=== PATIENT | female | born 1980 | race Hispanic/Latino ===

== ENCOUNTER 2025-06-04 17:05 | Emergency (ER) | payer OTHER ==
[~2025-06-04] VITALS: Ht 152.4 cm; Wt 66.2 kg
--- NOTE | 2025-06-04 17:44 | ERN ---
General Chief Complaint: Hyperglycemia Stated Complaint: HYPERGLYCEMIA Time Seen by MD: 17:23 Source: patient History of Present Illness Initial Comments 45-year-old female known type 1 diabetic who was incarcerated three days ago. She states that she has not been given her regular scheduled insulin. She is starting to feel like she is going into DKA. She asked to be brought to the emergency room. Blood glucose prior to transfer it was 331. Blood glucose measured here in the hospital is 240. Vital signs show the patient is tachycardic. Allergies: Coded Allergies: ibuprofen (Unverified Allergy, Unknown, 06/04/25) Past Medical History Past Medical History: Diabetes-Type II, High Cholesterol, Hypertension Past Surgical History: Appendectomy, Hysterectomy Constitutional: (-) chills, (-) diaphoresis, (-) fever, (-) malaise, (-) weakness, (-) other documentation EENTM: (-) eye pain, (-) blurred vision, (-) tearing, (-) double vision, (-) ear pain, (-) ear discharge, (-) nose pain, (-) nose congestion, (-) throat pain, (-) Throat swelling, (-) mouth pain, (-) tooth pain, (-) mouth swelling, (-) other documentation Respiratory: (-) cough, (-) orthopnea, (-) short of breath, (-) stridor, (-) wheezing, (-) other documentation Cardiovascular: (-) chest pain, (-) edema, (-) palpitations, (-) syncope, (-) dyspnea on exertion, (-) other documentation Gastrointestinal/Abdominal: (-) nausea, (-) vomiting, (-) diarrhea, (-) abdominal pain, (-) abdominal distention, (-) constipation, (-) rectal bleeding, (-) dark stool/melena, (-) other documentation Genitourinary: (-) vaginal discharge, (-) vaginal bleeding, (-) dysuria, (-) frequency, (-) hematuria, (-) pain, (-) other documentation Neuro: (-) altered mental status, (-) headache, (-) syncope, (-) paralysis, (-) numbness, (-) seizure, (-) pre-existing deficit, (-) tremors, (-) weakness, (-) dizziness, (-) slurred speech, (-) vertigo, (-) other documentation Physical Exam General Appearance: (+) moderate distress Orientation: (+) alert Head/Face Trauma: No Eye: bilateral eye normal inspection, bilateral eye PERRL, bilateral eye EOMI Ear, Nose, Throat: (+) hearing grossly normal, (+) normal ENT inspection, (+) moist mucous membraine Neck: (+) normal inspection, (+) supple, (+) full range of motion Respiratory: (+) chest non-tender, (+) lungs clear, (+) well ventilated Heart: (+) regular, (+) no gallop, (+) murmur, (+) tachycardia Vascular: (+) no edema, (+) normal peripheral pulse Gastrointestinal: (+) soft, (+) non-tender, (+) no organomegaly Results Laboratory and Microbiology Lab and Micro Result Laboratory Tests Test 06/04/25 17:24 06/04/25 17:42 06/04/25 18:57 06/04/25 20:45 Whole Blood Glucose 240 MG/DL (70-110) H 142 MG/DL (70-110) H Bedside Glucose Comment Notified Nurse White Blood Count 6.7 K/uL (4.8-10.8) Red Blood Count 5.45 MIL/uL (4.00-5.50) Hemoglobin 15.6 g/dL (12.0-16.0) Hematocrit 45.5 % (36-48) Mean Corpuscular Volume 83.5 fL (79-99) Mean Corpuscular Hemoglobin 28.6 pg (27.0-33.0) Mean Corpuscular Hemoglobin Concent 34.3 g/dL (32.0-36.0) Red Cell Distribution Width 12.2 % (11.0-15.5) Platelet Count 300 K/uL (130-400) Mean Platelet Volume 12.1 fL (7.5-10.5) H Immature Granulocyte % (Auto) 0.3 % (0-1) Neutrophils (%) (Auto) 71.3 % (40.0-77.0) Lymphocytes (%) (Auto) 19.5 % (21.0-51.0) L Monocytes (%) (Auto) 7.5 % (3.0-13.0) Eosinophils (%) (Auto) 0.8 % (0.0-8.0) Basophils (%) (Auto) 0.6 % (0.0-5.0) Neutrophils # (Auto) 4.8 K/uL (1.8-7.7) Lymphocytes # (Auto) 1.3 K/uL (1.0-4.8) Monocytes # (Auto) 0.5 K/uL (0.1-1.0) Eosinophils # (Auto) 0.05 K/uL (0.00-0.70) Basophils # (Auto) 0.04 K/uL (0.00-0.20) Absolute Immature Granulocyte (auto 0.02 K/uL (0-1) Nucleated Red Blood Cells 0.0 % (0.0-0.19) Sodium Level 135 mmol/L (136-145) L Potassium Level 3.6 mmol/L (3.5-5.1) Chloride Level 97 mmol/L (101-111) L Carbon Dioxide Level 27 mmol/L (21-32) Blood Urea Nitrogen 9 mg/dL (7-18) Creatinine 0.5 mg/dL (0.5-1.0) Glomerular Filtration Rate Calc 117 mL/min (>90) Random Glucose 253 mg/dL (70-105) H Whole Blood Ketones Quantitative 1.8 mmol/L (0.0-0.6) H Total Calcium 9.2 mg/dL (8.5-10.1) Blood Gas Specimen Type Arterial Arterial Blood pH 7.465 (7.350-7.450) Arterial Blood Partial Pressure CO2 34 mmHg (32-45) Arterial Blood Partial Pressure O2 82.2 mmHg (83.0-108.0) L Arterial Blood HCO3 24.2 mmol/L (21.0-28.0) Arterial Blood Oxygen Saturation 95.9 % (94.0-98.0) Arterial Blood Base Excess 0.9 mmol/L (-2.0-3.0) Hemoglobin (Blood Gas) 13.6 g/dL (12.0-16.0) Sodium (Blood Gas) 135 MMOL/L (136-145) L Bedside Potassium (Blood Gas) 3.3 MMOL/L (3.4-4.5) L Bedside Chloride (Blood Gas) 102 MMOL/L (98-107) Bedside Glucose (Blood Gas) 146 MG/DL (65-95) H Bedside Ionized Calcium (Blood Gas) 1.21 MMOL/L (1.15-1.33) Bedside Lactic Acid (Blood Gas) 1.72 MMOL/L (0.36-0.75) H Blood Gas Temperature 37.0 CELSIUS (35.5-37.0) Blood Gas Vent Mode RA (ROOM AIR) FiO2 21.0 % Blood Gas Specimen Comment LEFT RAD Labs Reviewed?: Yes MDM MDM: Differential diagnosis: DKA, hyperglycemia with the hydration, acute AR occult infection Rationale: Tests considered and ordered secondary to shared decision making include: Previous outside records reviewed: Old ER visits. Risk of complication and/or morbidity or mortality of patient management: None Medications-Per medication reconciliation Need for hospitalization: Patient does meet criteria for hospitalization. Need for emergency major/minor surgery: No PATIENT IS A 45-YEAR-OLD FEMALE WITH A HISTORY OF DIABETES. PATIENT WAS INCARCERATED STATES SHE WAS NOT TAKING HER INSULIN FOR FOUR DAYS. LABORATORY WORKUP DID SHOW HYPERGLYCEMIA IV FLUIDS AND INSULIN WERE GIVEN HYPERGLYCEMIA IMPROVED. PATIENT WILL BE DISCHARGED IN STABLE CONDITION WITH A DIAGNOSIS OF DIABETES MELLITUS HYPERGLYCEMIA UNCONTROLLED. ED Course Orders Procedure Category Date Status Time Cbc With Differential LAB 06/04/25 Complete 17:31 Basic Metabolic Panel LAB 06/04/25 Complete 17:31 Urinalysis Profile LAB 06/04/25 Logged 17:31 Ketone Blood LAB 06/04/25 Complete Quantitative 17:31 Lactated Ringers PHA 06/04/25 Complete 1000ml (Lactated 17:40 Insulin Regular, PHA 06/04/25 Complete Human 3ml (Humulin R 18:00 12 Lead Ekg Tracing- EKG 06/04/25 Complete Technical 17:44 Arterial Blood Gas RT 06/04/25 Transmitted 18:28 Arterial Blood Gas LAB 06/04/25 Complete Arterial + 18:57 Current Medications Medications (Trade) Dose Ordered Sig/Tank Route PRN Reason Start Time Stop Time Status Last Admin Dose Admin Insulin Human Regular (humuLIN R 100 UNIT/ML 3ML) 7 unit ONCE ONCE SQ 06/04/25 18:00 06/04/25 18:01 DC 06/04/25 17:52 Lactated Ringer's (Lactated Ringers 1000ml) 2,000 ml BOLUS STAT IV 06/04/25 17:40 06/04/25 17:45 DC 06/04/25 17:52 Vital Signs Date Time Temp Pulse Resp B/P (MAP) Pulse Ox O2 Delivery O2 Flow Rate FiO2 06/04/25 18:40 63 20 132/83 95 Room Air* 0 21 06/04/25 17:24 97.9 86 16 153/89 98 Room Air 0 DX & DISP Disposition: Discharge Departure Impression: Primary Impression: Uncontrolled diabetes mellitus with hyperglycemia, with long-term current use of insulin Condition: Stable Additional Instructions: FOLLOW-UP WITH PRIMARY CARE PROVIDER IN 1 TO 2 DAYS. TAKE MEDICATIONS DIRECTED HERE IN THE EMERGENCY ROOM. OKAY TO CONTINUE HOME MEDICATIONS UNLESS OTHERWISE DISCUSSED DURING YOUR VISIT IN THE EMERGENCY ROOM TODAY. RETURN TO YOUR NEAREST EMERGENCY ROOM IF SYMPTOMS WORSEN OR IF THERE IS NO IMPROVEMENT. CALL 911 IF YOU NEED IMMEDIATE ASSISTANCE. TAKE TYLENOL [id number] NEEDED AND IF NO CONTRAINDICATIONS ARE PRESENT. INCREASE ORAL HYDRATION. A WOUND CULTURE OR URINE CULTURE WAS ORDERED HERE IN THE EMERGENCY ROOM DEPARTMENT PLEASE FOLLOW-UP WITH PRIMARY CARE PROVIDER AND ADVISE THEM TO GET REPORTS FROM OUR FACILITY. IF YOU HAD ANY ANTOINE WRAP/SPLINTS THAT WERE APPLIED HERE, PLEASE DO NOT REMOVE THEM UNTIL YOU SEE YOUR PRIMARY CARE OR SPECIALTY. REFERRALS: Referrals: SELF,REFERRAL (PCP) JULIA KRAFT MD, GORDON K MD Jun 04, 2025 17:44 KALPESH WARD MD Jun 04, 2025 20:58
[2025-06-04 17:48] LABS: IMMATURE GRANULOCYTE ABSOLUTE 0.02 K/uL (0-1); NUCLEATED RED BLOOD CELLS 0.0 % (0.0-0.19); PLATELET COUNT (AUTO) 300 K/uL (130-400); RED BLOOD CELL COUNT(AUTO) 5.45 MIL/uL (4.00-5.50); RED CELL DISTRIBUTION WIDTH 12.2 % (11.0-15.5); WHITE BLOOD COUNT (AUTO) 6.7 K/uL (4.8-10.8)
[2025-06-04] MEDS: LACTATED RINGERS 1000ML IV STA (17:52)
--- NOTE | 2025-06-04 17:52 | EKG ---
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
[2025-06-04 18:01] LABS: CREATININE 0.5 mg/dL (0.5-1.0); GLOMERULAR FILTR. RATE CALC 117.0 mL/min (>90); GLUCOSE,RANDOM 253.0 mg/dL (70-105); SODIUM SERUM 135.0 mmol/L (136-145); UREA NITROGEN, BLOOD 9.0 mg/dL (7-18)
[2025-06-04 18:59] LABS: ABG BASE EXCESS 0.9 mmol/L (-2.0-3.0); ABG HCO3 24.2 mmol/L (21.0-28.0); ABG OXYGEN SATURATION 95.9 % (94.0-98.0); ABG PCO2 34 mmHg (32-45); ABG PH 7.465 (7.350-7.450); CARBON MONOXIDE 0.8 % (0.5-1.5); DEVICE COMMENT LEFT RAD; PO2, ARTERIAL BG 82.2 mmHg (83.0-108.0); TEMPERATURE, CELSIUS BG 37.0 CELSIUS (35.5-37.0); VENT MODE, BG RA (ROOM AIR)
--- NOTE | 2025-06-04 22:54 | NUR ---
TRANSPORT HERE TO [facility], PT IN NO DISTRESS.
[2025-06-04 22:56] VITALS: BP 135/75; PULSE 71; RESP 18; TEMP 98.1; O2SAT 96
== END 2025-06-04 23:08 ==
LOC: EDH 17:05 → EEVIPCON 17:05 → EDH 23:08
DX: E11.65 Type 2 diabetes mellitus with hyperglycemia (principal); Z79.4 Long term (current) use of insulin
CPT/HCPCS: 99284; 96360; 96361; 82947; 80048; 82803; 85025; 82948 ×2; 83605; 82010; 36415; 96372; 93005; 36600; 82435; 84132; 84295; 85018; J1815; J7120